=== PATIENT | male | born 1965 | race Caucasian/White ===

== ENCOUNTER 2023-03-22 22:42 | Inpatient (IN) | payer MEDICAID, OTHER ==
[~2023-03-22] VITALS: Ht 167.6 cm; Wt 59.0 kg
[2023-03-22] MEDS ORDERED: LevETIRAcetam 1,000 MG in DEXTROSE 5%-WATER 100 ML IV ONE (23:45)
[2023-03-23] MEDS ORDERED: ACETAMINOPHEN 325 MG TABLET PO PRN
[2023-03-23] MEDS ORDERED: LORazepam 2 MG/ML VIAL IVP PRN (00:15)
[2023-03-23] MEDS ORDERED: ONDANSETRON HCL 4 MG/2 ML VIAL IVP PRN ×2 (00:15)
[2023-03-23] MEDS: ATORVASTATIN CALCIUM 40 MG TABLET PO SCH ×2 (02:04→20:27)
[2023-03-23] MEDS: ASPIRIN 81 MG CHEWABLE TABLET PO SCH ×2 (02:04→20:28)
[2023-03-23] MEDS: ACETAMINOPHEN 325 MG TABLET PO PRN ×3 (02:36→20:31)
[2023-03-23 02:43] VITALS: BP 131/92; PULSE 68; RESP 20; TEMP 98.1
[2023-03-23 04:54] VITALS: BP 129/80; PULSE 66; RESP 18; TEMP 98.2
[2023-03-23] MEDS ORDERED: GADOTERATE MEGLUMINE 10 MMOL/20 ML VIAL IVP ONE (08:11)
[2023-03-23 08:14] VITALS: BP 105/63; PULSE 60; RESP 19; TEMP 97.5
[2023-03-23] MEDS: HEPARIN SODIUM,PORCINE 5,000 UNITS/ML VIAL SQ SCH ×3 (09:25→23:58)
[2023-03-23] MEDS: DOCUSATE SODIUM 100 MG CAPSULE PO SCH ×2 (09:25→20:28)
[2023-03-23 09:56] LABS: BASOPHILS % (AUTO) 0.7 % (0.0-2.0); EOSINOPHILS % (AUTO) 2.4 % (1.0-6.0); HEMATOCRIT 34.4 % (41-53); HEMOGLOBIN 10.9 g/dL (13.5-17.5); LYMPHOCYTES # (AUTO) 1.8 K/uL (1.0-4.8); LYMPHOCYTES % (AUTO) 36.7 % (22.0-44.0); MEAN CORPUSCULAR HEMOGLOBIN 22.5 pg (26.0-34.0); MEAN CORPUSCULAR HGB CONC 31.7 G/dL (31.0-37.0); MEAN CORPUSCULAR VOLUME 71 fL (80-100); MONOCYTES # (AUTO) 0.5 K/uL (0.1-1.0); MONOCYTES % (AUTO) 10.5 % (2.0-9.0); NEUTROPHILS # (AUTO) 2.4 K/uL (1.8-7.7); NEUTROPHILS % (AUTO) 49.7 % (40.0-70.0); PLATELET COUNT (AUTO) 131 K/uL (150-450); RED BLOOD CELL COUNT(AUTO) 4.85 MIL/uL (4.50-5.90); RED CELL DISTRIBUTION WIDTH 17.8 % (11.5-14.5)
[2023-03-23 10:05] LABS: ANION GAP 1 mmol/L (8-16); CALCIUM, TOTAL 8.9 mg/dL (8.8-10.5); CARBON DIOXIDE 34 mmol/L (22-29); CHLORIDE 103 mmol/L (98-107); CREATININE 0.85 mg/dL (0.60-1.30); GLOMERULAR FILTR. RATE CALC > 60 mL/min (>60); GLUCOSE,RANDOM 90 mg/dL (70-110); POTASSIUM 4.5 mmol/L (3.5-5.1); SODIUM SERUM 138 mmol/L (136-145)
[2023-03-23 10:11] LABS: ALANINE AMINOTRANSFERASE 41 U/L (12-78); ALBUMIN 3.1 g/dL (3.4-5.0); ALKALINE PHOSPHATASE 88 U/L (46-116); ASPARTATE AMINOTRANSFERASE 20 U/L (15-37); BILIRUBIN,TOTAL 0.4 mg/dL (0.1-1.0); TOTAL PROTEIN, SERUM 6.5 g/dL (6.4-8.2)
[2023-03-23 10:44] LABS: PLATELET MORPHOLOGY COMMENT LARGE PLTS PRESENT
[2023-03-23] MEDS: LevETIRAcetam 500 MG in DEXTROSE 5%-WATER 100 ML IV SCH (13:30)
[2023-03-23] MEDS ORDERED: KETOROLAC TROMETHAMINE 15 MG/ML VIAL IVP PRN (14:30)
[2023-03-23] MEDS ORDERED: LORazepam 2 MG/ML VIAL IVP ONE (14:30)
[2023-03-23 20:00] VITALS: BP 110/76; PULSE 71; RESP 16; TEMP 98.5
[2023-03-24] VITALS: BP 106/72; PULSE 79; RESP 18; TEMP 97.7
[2023-03-24] MEDS: LevETIRAcetam 500 MG in DEXTROSE 5%-WATER 100 ML IV SCH ×2 (00:10→12:25)
[2023-03-24 05:00] VITALS: BP 103/69; PULSE 60; RESP 16
[2023-03-24 08:54] VITALS: BP 119/70; PULSE 65; RESP 18; TEMP 97.9
[2023-03-24] MEDS: HEPARIN SODIUM,PORCINE 5,000 UNITS/ML VIAL SQ SCH (08:59)
[2023-03-24] MEDS: DOCUSATE SODIUM 100 MG CAPSULE PO SCH (08:59)
[2023-03-24 12:25] VITALS: BP 101/56; PULSE 65; RESP 18; TEMP 98.8
[2023-03-24] MEDS ORDERED: ASPI-1450 PO (14:05)
[2023-03-24] MEDS ORDERED: ATOR40TA28 PO (14:06)
[2023-03-24] MEDS ORDERED: LEVE500T20 PO (14:06)
== END 2023-03-24 14:30 | DRG 101 ==
LOC: EMS 22:42 → 5N 23:57
PROVIDERS: ADMIT Internal Medicine; ATTEND Internal Medicine
DX: G40.802 Other epilepsy, not intractable, without status epilepticus (principal); R53.1 Weakness; D56.9 Thalassemia, unspecified; Z88.5 Allergy status to narcotic agent
CPT/HCPCS: 70553; 72141; 80053; 84443; 85025; 92526; 97163; 97166; 97535; 99285; J0712; J1644; J2060; J7060